=== PATIENT | female | born 1955 | race African-American/Black ===

== ENCOUNTER 2019-09-24 13:36 | Inpatient (IN) | payer MEDICAID ==
[~2019-09-24] VITALS: Ht 167.6 cm; Wt 83.9 kg
[2019-09-24] MEDS ORDERED: SODIUM CHLORIDE 0.9% 1,000 ML IV ONE (13:55)
[2019-09-24 14:33] LABS: HEMATOCRIT. 21.2 % (36.0-48.0); MEAN CORPUSCULAR HEMOGLOBIN 25.8 pg (28.0-32.0); MEAN CORPUSCULAR VOLUME 80.8 fL (81.0-99.0); MEAN PLATELET VOLUME 8.9 fl (7.4-10.4); PLATELET 182 x1000/uL (130-400); RED BLOOD CELL COUNT 2.62 mill/uL (4.2-5.4); RED CELL DISTRIBUTION WIDTH 18.2 % (11.6-14.6)
[2019-09-24 14:34] LABS: CHLORIDE 115 mEq/L (98-107)
[2019-09-24 14:36] LABS: PROTHROMBIN TIME 10.6 sec (9.6-11.0)
[2019-09-24 15:06] LABS: HEMOGLOBIN. 6.7 g/dL (12.0-16.0)
[2019-09-24] MEDS ORDERED: ACETAMINOPHEN 325MG TABLET PO PRN (16:30)
[2019-09-24] MEDS ORDERED: DIPHENHYDRAMINE 50MG/ML VIAL IV PRN (16:30)
[2019-09-24] MEDS ORDERED: CLONIDINE 0.1MG TABLET PO PRN (16:30)
[2019-09-24] MEDS ORDERED: IPRATROPIUM/ALBUTEROL 0.5-3(2.5)MG/3ML NEB HHN PRN (16:30)
[2019-09-24] MEDS ORDERED: ONDANSETRON HCL 4MG/2ML INJ IV PRN (16:30)
[2019-09-24 16:54] LABS: PHOSPHORUS 2.9 mg/dL (2.5-4.9)
[2019-09-24 17:00] LABS: PLATELET ESTIMATE NORMAL
[2019-09-24 17:22] LABS: FOLIC ACID (FOLATE) SERUM 10.8 ng/mL (>5.38)
[2019-09-24] MEDS: SUCRALFATE 1 G/10 ML UDC PO SCH (21:00)
[2019-09-24] MEDS: SODIUM CHLORIDE 0.9% 1,000 ML IV SCH (21:45)
[2019-09-24 22:00] VITALS: BP 103/58
[2019-09-24 22:12] VITALS: BP 122/57
[2019-09-25] VITALS (25 sets, daily range): BP systolic 110–152; BP diastolic 52–89
[2019-09-25 07:11] LABS: CHLORIDE 120 mEq/L (98-107)
[2019-09-25 07:27] LABS: LDL CHOLESTEROL 42 mg/dL (5-100)
[2019-09-25 07:28] LABS: HDL CHOLESTEROL 43 mg/dL (40-59)
[2019-09-25] MEDS: SUCRALFATE 1 G/10 ML UDC PO SCH ×4 (08:14→21:00)
[2019-09-25] MEDS: PANTOPRAZOLE SODIUM 40 MG/VIAL IV SCH (08:14)
[2019-09-25] MEDS: SODIUM CHLORIDE 0.9% 1,000 ML IV SCH ×2 (08:14→22:00)
[2019-09-25] MEDS ORDERED: PANTOPRAZOLE SODIUM 40 MG/VIAL IV SCH (09:00)
[2019-09-25 10:04] LABS: MEAN CORPUSCULAR HEMOGLOBIN 26.3 pg (28.0-32.0); PLATELET 158 x1000/uL (130-400); RED BLOOD CELL COUNT 2.09 mill/uL (4.2-5.4); RED CELL DISTRIBUTION WIDTH 17.5 % (11.6-14.6)
[2019-09-25 10:14] LABS: HEMATOCRIT 17.2 % (36.0-48.0); HEMOGLOBIN 5.5 g/dL (12.0-16.0)
[2019-09-25] MEDS ORDERED: LEVOFLOXACIN 500MG PREMIX 100 ML IV SCH (11:45)
[2019-09-25] MEDS ORDERED: AZITHROMYCIN 500 MG TABLET PO SCH (12:00)
[2019-09-25] MEDS: IRON SUCROSE COMPLEX 100 MG/5 ML ML IV SCH (13:16)
[2019-09-25] MEDS: CEFTRIAXONE 1 G PREMIX 50 ML IV SCH (13:51)
[2019-09-25] MEDS: METRONIDAZOLE 500 MG PREMIX 100 ML IV SCH ×2 (14:56→22:00)
[2019-09-25 16:22] LABS: HEMOGLOBIN 6.2 g/dL (12.0-16.0)
[2019-09-25] MEDS ORDERED: METOCLOPRAMIDE HCL 10MG/2ML VIAL IV SCH (19:00)
[2019-09-25] MEDS ORDERED: BISACODYL 5MG TABLET PO SCH (19:00)
[2019-09-25] MEDS ORDERED: SORBITOL 70% SOLN 30ML PO SCH (19:00)
[2019-09-25] MEDS ORDERED: METOCLOPRAMIDE HCL 10MG/2ML VIAL IV ONE (21:30)
[2019-09-25] MEDS ORDERED: BISACODYL 5MG TABLET PO ONE (22:00)
[2019-09-26] VITALS (48 sets, daily range): BP systolic 97–158; BP diastolic 25–93
[2019-09-26 01:13] LABS: HEMOGLOBIN 8.4 g/dL (12.0-16.0)
[2019-09-26 03:08] LABS: MEAN CORPUSCULAR HEMOGLOBIN 27.5 pg (28.0-32.0); MEAN PLATELET VOLUME 8.4 fl (7.4-10.4); PLATELET 145 x1000/uL (130-400); RED CELL DISTRIBUTION WIDTH 16.7 % (11.6-14.6)
[2019-09-26 03:16] LABS: HEMATOCRIT. 20.7 % (36.0-48.0); HEMOGLOBIN. 6.9 g/dL (12.0-16.0)
[2019-09-26 03:17] LABS: INR 1.1; PROTHROMBIN TIME 11.4 sec (9.6-11.0)
[2019-09-26] MEDS ORDERED: METOCLOPRAMIDE HCL 10MG/2ML VIAL IV ONE (03:30)
[2019-09-26] MEDS ORDERED: BISACODYL 5MG TABLET PO ONE (04:00)
[2019-09-26] MEDS ORDERED: POTASSIUM CHLORIDE 20MEQ TABLET SR PO NR (04:30)
[2019-09-26 05:18] LABS: PLATELET ESTIMATE NORMAL
[2019-09-26] MEDS ORDERED: SODIUM CHLORIDE 0.9% 1,000 ML IV NR (05:54)
[2019-09-26] MEDS: METRONIDAZOLE 500 MG PREMIX 100 ML IV SCH ×3 (06:00→21:59)
[2019-09-26] MEDS: DEXT 5%/0.45% NACL 1000ML 1,000 ML IV SCH ×2 (06:11→15:30)
[2019-09-26] MEDS: CYANOCOBALAMIN 1000MCG/ML VIAL IM SCH (08:17)
[2019-09-26] MEDS: IRON SUCROSE COMPLEX 100 MG/5 ML ML IV SCH (08:17)
[2019-09-26] MEDS: SUCRALFATE 1 G/10 ML UDC PO SCH ×4 (08:17→21:59)
[2019-09-26] MEDS: PANTOPRAZOLE SODIUM 40 MG/VIAL IV SCH (08:17)
[2019-09-26 09:48] LABS: HEMATOCRIT 24.8 % (36.0-48.0); MEAN CORPUSCULAR HEMOGLOBIN 27.9 pg (28.0-32.0); MEAN CORPUSCULAR VOLUME 86.6 fL (81.0-99.0); PLATELET 135 x1000/uL (130-400); RED BLOOD CELL COUNT 2.86 mill/uL (4.2-5.4); RED CELL DISTRIBUTION WIDTH 16.6 % (11.6-14.6)
[2019-09-26] MEDS: CEFTRIAXONE 1 G PREMIX 50 ML IV SCH (13:35)
[2019-09-26 14:37] LABS: COLOR URINE YELLOW (YELLOW); KETONES URINE NEGATIVE (NEGATIVE); LEUKOCYTE ESTERASE URINE NEGATIVE (NEGATIVE); NITRITE URINE NEGATIVE (NEGATIVE); OCCULT BLOOD URINE NEGATIVE (NEGATIVE); PROTEIN URINE NEGATIVE (NEGATIVE); SPECIFIC GRAVITY URINE 1.018 (1.005-1.030); UROBILINOGEN URINE 0.2 E.U./dL (0.2-1.0)
[2019-09-26 14:39] LABS: CLARITY URINE CLEAR (CLEAR)
[2019-09-26] MEDS ORDERED: FENTANYL CITRATE/PF 50MCG/ML 2ML VIAL IV NR (15:11)
[2019-09-26] MEDS ORDERED: FENTANYL CITRATE/PF 50MCG/ML 2ML VIAL ONE (15:11)
[2019-09-26] MEDS ORDERED: MIDAZOLAM HCL 5 MG/5 ML VIAL IV NR (15:11)
[2019-09-26] MEDS ORDERED: MIDAZOLAM HCL 5 MG/5 ML VIAL ONE (15:11)
[2019-09-26 20:39] LABS: HEMATOCRIT 21.7 % (36.0-48.0); HEMOGLOBIN 7.1 g/dL (12.0-16.0)
[2019-09-27] VITALS (54 sets, daily range): BP systolic 69–164; BP diastolic 37–93
[2019-09-27] MEDS: DEXT 5%/0.45% NACL 1000ML 1,000 ML IV SCH ×3 (01:28→20:57)
[2019-09-27 05:42] LABS: MEAN CORPUSCULAR HEMOGLOBIN 28.6 pg (28.0-32.0); MEAN CORPUSCULAR VOLUME 86.1 fL (81.0-99.0); MEAN PLATELET VOLUME 9.4 fl (7.4-10.4); PLATELET 158 x1000/uL (130-400); RED BLOOD CELL COUNT 2.35 mill/uL (4.2-5.4); RED CELL DISTRIBUTION WIDTH 16.7 % (11.6-14.6)
[2019-09-27 06:04] LABS: HEMATOCRIT. 20.2 % (36.0-48.0); HEMOGLOBIN. 6.7 g/dL (12.0-16.0)
[2019-09-27] MEDS: METRONIDAZOLE 500 MG PREMIX 100 ML IV SCH ×3 (06:17→21:07)
[2019-09-27] MEDS: CYANOCOBALAMIN 1000MCG/ML VIAL IM SCH (08:21)
[2019-09-27] MEDS: PANTOPRAZOLE SODIUM 40 MG/VIAL IV SCH (08:21)
[2019-09-27] MEDS: SUCRALFATE 1 G/10 ML UDC PO SCH ×4 (08:21→20:57)
[2019-09-27] MEDS: IRON SUCROSE COMPLEX 100 MG/5 ML ML IV SCH (08:21)
[2019-09-27 08:48] LABS: PLATELET ESTIMATE NORMAL
[2019-09-27] MEDS: CEFTRIAXONE 1 G PREMIX 50 ML IV SCH (12:58)
[2019-09-27 20:10] LABS: HEMATOCRIT 17.8 % (36.0-48.0)
[2019-09-28] VITALS (58 sets, daily range): BP systolic 87–161; BP diastolic 48–90
[2019-09-28] MEDS: METRONIDAZOLE 500MG TABLET PO SCH ×3 (05:49→21:13)
[2019-09-28] MEDS: SUCRALFATE 1 G/10 ML UDC PO SCH ×4 (07:59→21:13)
[2019-09-28] MEDS: DEXT 5%/0.45% NACL 1000ML 1,000 ML IV SCH ×2 (07:59→17:03)
[2019-09-28] MEDS: CYANOCOBALAMIN 1000MCG/ML VIAL IM SCH (08:00)
[2019-09-28] MEDS: PANTOPRAZOLE SODIUM 40 MG/VIAL IV SCH (08:00)
[2019-09-28 08:43] LABS: PROTHROMBIN TIME 11.2 sec (9.6-11.0)
[2019-09-28 09:38] LABS: BASOPHILS % 0.4 % (0.0-2.0); EOSINOPHILS % 7.3 % (0.0-5.0); HEMATOCRIT. 25.4 % (36.0-48.0); HEMOGLOBIN. 8.7 g/dL (12.0-16.0); LYMPHOCYTES % 15.5 % (20.0-50.0); MEAN CORPUSCULAR HEMOGLOBIN 29.1 pg (28.0-32.0); MEAN CORPUSCULAR VOLUME 84.8 fL (81.0-99.0); MEAN PLATELET VOLUME 8.7 fl (7.4-10.4); MONOCYTES % 7.2 % (2.0-8.0); NEUTROPHILS % 69.6 % (40.0-76.0); RED CELL DISTRIBUTION WIDTH 15.8 % (11.6-14.6)
[2019-09-28 10:52] LABS: PLATELET 133 x1000/uL (130-400)
[2019-09-28] MEDS: CEFTRIAXONE 1 G PREMIX 50 ML IV SCH (12:55)
[2019-09-28] MEDS ORDERED: DEXTROSE 5% WATER 1,000 ML IV ONE (18:00)
[2019-09-28 20:23] LABS: HEMATOCRIT 25.7 % (36.0-48.0); HEMOGLOBIN 8.7 g/dL (12.0-16.0); MEAN CORPUSCULAR HEMOGLOBIN 29.1 pg (28.0-32.0); PLATELET 158 x1000/uL (130-400); RED BLOOD CELL COUNT 2.98 mill/uL (4.2-5.4)
[2019-09-29] VITALS (9 sets, daily range): BP systolic 119–150; BP diastolic 63–82
[2019-09-29 01:00] LABS: HEMATOCRIT 24.7 % (36.0-48.0); HEMOGLOBIN 8.4 g/dL (12.0-16.0); MEAN CORPUSCULAR HEMOGLOBIN 29.1 pg (28.0-32.0); MEAN CORPUSCULAR VOLUME 85.4 fL (81.0-99.0); PLATELET 163 x1000/uL (130-400); RED BLOOD CELL COUNT 2.89 mill/uL (4.2-5.4); RED CELL DISTRIBUTION WIDTH 16.4 % (11.6-14.6)
[2019-09-29] MEDS: DEXT 5%/0.45% NACL 1000ML 1,000 ML IV SCH ×2 (03:34→12:53)
[2019-09-29] MEDS: METRONIDAZOLE 500MG TABLET PO SCH ×2 (05:31→13:15)
[2019-09-29 06:16] LABS: HEMOGLOBIN 8.2 g/dL (12.0-16.0); MEAN CORPUSCULAR HEMOGLOBIN 29.3 pg (28.0-32.0); MEAN CORPUSCULAR VOLUME 85.9 fL (81.0-99.0); PLATELET 179 x1000/uL (130-400); RED BLOOD CELL COUNT 2.79 mill/uL (4.2-5.4); RED CELL DISTRIBUTION WIDTH 16.2 % (11.6-14.6)
[2019-09-29] MEDS: CYANOCOBALAMIN 1000MCG/ML VIAL IM SCH (08:14)
[2019-09-29] MEDS: PANTOPRAZOLE SODIUM 40 MG/VIAL IV SCH (08:14)
[2019-09-29] MEDS: SUCRALFATE 1 G/10 ML UDC PO SCH ×2 (08:14→13:15)
[2019-09-29] MEDS ORDERED: PANT40TA4 MT (10:46)
[2019-09-29] MEDS ORDERED: FERR325T6 MT (10:46)
[2019-09-29] MEDS ORDERED: CIPR750T4 MT (10:46)
[2019-09-29] MEDS ORDERED: SUCR1TAB MT (10:46)
[2019-09-29] MEDS ORDERED: METR500T MT (10:46)
[2019-09-29] MEDS: CEFTRIAXONE 1 G PREMIX 50 ML IV SCH (12:53)
== END 2019-09-29 14:00 | disposition home or self-care (01) | DRG 241 ==
LOC: ER 13:49 → 5EST 16:06 → EDBEDREQ 16:10 → EDBEDREQSVC 16:10 → ENRESERV 17:22 → CVICU 09-26 07:17 → 5EST 09-28 22:56
PROVIDERS: ADMIT Internal Medicine; ATTEND Internal Medicine
PROC: 30233N1 Transfusion of Nonautologous Red Blood Cells into Peripheral Vein, Percutaneous Approach (ICD-10-PCS; 2019-09-24)
PROC: 0DB78ZX Excision of Stomach, Pylorus, Via Natural or Artificial Opening Endoscopic, Diagnostic (ICD-10-PCS; principal; 2019-09-26)
DX: K29.71 Gastritis, unspecified, with bleeding (principal); J18.9 Pneumonia, unspecified organism; N17.9 Acute kidney failure, unspecified; K57.33 Diverticulitis of large intestine without perforation or abscess with bleeding; E46 Unspecified protein-calorie malnutrition; E83.51 Hypocalcemia; K22.2 Esophageal obstruction; E86.0 Dehydration; K44.9 Diaphragmatic hernia without obstruction or gangrene; D50.0 Iron deficiency anemia secondary to blood loss (chronic); M47.816 Spondylosis without myelopathy or radiculopathy, lumbar region; I13.10 Hypertensive heart and chronic kidney disease without heart failure, with stage 1 through stage 4 chronic kidney disease, or unspecified chronic kidney disease; K76.0 Fatty (change of) liver, not elsewhere classified; N18.9 Chronic kidney disease, unspecified; G40.909 Epilepsy, unspecified, not intractable, without status epilepticus; K76.89 Other specified diseases of liver; Z59.0 Homelessness; Z90.49 Acquired absence of other specified parts of digestive tract; Z68.29 Body mass index [BMI] 29.0-29.9, adult
CPT/HCPCS: 36415; 71045; 74176; 76700; 78278; 80048; 80053; 80061; 81003; 82270; 82607; 82728; 82746; 83540; 83550; 83735; 83880; 84100; 85014; 85018; 85025; 85027; 86850; 86900; 86920; 87015; 87045; 87427; 87449; 88305; 88313; 89055; 93005; 93970; 99291; A9560; C9113; J0696; J2250; J3010; J3420; J3490; J7030; P9016